=== PATIENT | female | born 1945 | race Caucasian/White ===

== ENCOUNTER 2017-04-22 11:13 | Outpatient (CLI) | payer OTHER ==
[~2017-04-22 11:13] MED LIST: INTESTINEX1 CA1 PO; PEPCID20 MG PO; SEPTRA DS TABLE1 TAB PO
== END 2017-04-22 13:48 | disposition home or self-care (01) ==
LOC: RAD 11:13
DX: N20.0 Calculus of kidney (principal)

== ENCOUNTER 2018-06-30 13:09 | Outpatient (CLI) | payer OTHER | END 2018-06-30 13:25 | disposition home or self-care (01) | LOC: LAB 13:09 | DX: N20.0 Calculus of kidney (principal) ==

== ENCOUNTER 2018-07-28 13:02 | Emergency (ER) | payer OTHER ==
[~2018-07-28] VITALS: Ht 149.9 cm; Wt 52.2 kg
== END 2018-07-28 16:14 | disposition home or self-care (01) ==
LOC: ER 13:02
DX: S90.02XA Contusion of left ankle, initial encounter (principal); W01.198A Fall on same level from slipping, tripping and stumbling with subsequent striking against other object, initial encounter; Y93.89 Activity, other specified; Y92.59 Other trade areas as the place of occurrence of the external cause; Y99.8 Other external cause status

== ENCOUNTER 2018-11-19 08:20 | Day surgery (SDC) | payer OTHER | END 2018-11-19 13:35 | disposition home or self-care (01) | LOC: CIR LITO 08:20 → O/R 08:47 → CIR LITO 08:47 → CIR.AMB 11:45 → CIR LITO 11:45 → O/R 13:35 | DX: N20.0 Calculus of kidney (principal) ==

== ENCOUNTER → 2018-12-04 | Outpatient (CLI) | payer OTHER | END | disposition home or self-care (01) | LOC: RAD 09:56 | DX: N30.00 Acute cystitis without hematuria (principal) ==

== ENCOUNTER 2019-02-05 07:56 | Outpatient (CLI) | payer OTHER | END 2019-02-05 08:12 | disposition home or self-care (01) | LOC: LAB 07:56 | DX: R10.32 Left lower quadrant pain (principal); R19.5 Other fecal abnormalities; K59.09 Other constipation ==

== ENCOUNTER → 2019-02-05 | Outpatient (CLI) | payer OTHER | END | disposition home or self-care (01) | LOC: RAD 08:34 → MAMO-SONO 08:34 | DX: R31.1 Benign essential microscopic hematuria (principal); N20.0 Calculus of kidney ==

== ENCOUNTER → 2019-02-07 10:11 | Outpatient (CLI) | payer OTHER | END | disposition home or self-care (01) | LOC: LAB 10:11 | DX: R10.32 Left lower quadrant pain (principal); K59.09 Other constipation; R19.5 Other fecal abnormalities ==

== ENCOUNTER 2019-08-05 11:19 | Outpatient (CLI) | payer OTHER | END 2019-08-05 11:25 | disposition home or self-care (01) | LOC: RAD 11:19 | DX: N20.0 Calculus of kidney (principal) ==

== ENCOUNTER 2020-07-19 07:41 | Outpatient (CLI) | payer OTHER | END 2020-07-19 07:44 | disposition home or self-care (01) | LOC: SONOGRAMA 07:41 → MAMO-SONO 10:15 | PROVIDERS: ATTEND Urology | DX: N20.0 Calculus of kidney (principal); N31.1 Reflex neuropathic bladder, not elsewhere classified; N28.89 Other specified disorders of kidney and ureter ==

== ENCOUNTER 2021-07-18 09:02 | Outpatient (CLI) | payer OTHER | END 2021-07-18 09:11 | disposition home or self-care (01) | LOC: SONOGRAMA 09:02 | PROVIDERS: ATTEND Urology | DX: N20.0 Calculus of kidney (principal); R31.1 Benign essential microscopic hematuria ==

== ENCOUNTER → 2022-07-24 | Outpatient (CLI) | payer OTHER | END | disposition home or self-care (01) | LOC: RAD 07:22 | PROVIDERS: ATTEND Urology | DX: N20.0 Calculus of kidney (principal); R31.1 Benign essential microscopic hematuria ==

== ENCOUNTER 2022-08-07 13:59 | Outpatient (CLI) | payer OTHER | END 2022-08-07 14:13 | disposition home or self-care (01) | LOC: MRI 13:59 | PROVIDERS: ATTEND Neuromusculoskeletal Medicine & OMM | DX: M51.26 Other intervertebral disc displacement, lumbar region (principal); M51.36 Other intervertebral disc degeneration, lumbar region | CPT/HCPCS: 72148 ==

== ENCOUNTER 2022-08-07 15:31 | Outpatient (CLI) | payer OTHER | END 2022-08-07 15:37 | disposition home or self-care (01) | LOC: LAB 15:31 | PROVIDERS: ATTEND Neuromusculoskeletal Medicine & OMM | DX: R41.3 Other amnesia (principal) ==

== ENCOUNTER 2022-08-21 07:37 | Outpatient (CLI) | payer OTHER | END 2022-08-21 07:49 | disposition home or self-care (01) | LOC: TOM 07:37 | PROVIDERS: ATTEND Urology | DX: N20.1 Calculus of ureter (principal) ==

== ENCOUNTER 2022-08-24 01:25 | Emergency (ER) | payer OTHER ==
[~2022-08-24] VITALS: Ht 144.8 cm; Wt 52.2 kg
== END 2022-08-24 12:24 | disposition home or self-care (01) ==
LOC: ER 01:25
DX: N20.1 Calculus of ureter (principal); Z88.8 Allergy status to other drugs, medicaments and biological substances

== ENCOUNTER 2022-09-15 09:14 | Outpatient (CLI) | payer OTHER | END 2022-09-15 09:25 | disposition home or self-care (01) | LOC: NUCLEAR 09:14 | PROVIDERS: ATTEND Internal Medicine | DX: M81.0 Age-related osteoporosis without current pathological fracture (principal) ==

== ENCOUNTER 2022-09-15 10:32 | Outpatient (CLI) | payer OTHER | END 2022-09-15 10:52 | disposition home or self-care (01) | LOC: RAD 10:32 | PROVIDERS: ATTEND Urology | DX: N60.11 Diffuse cystic mastopathy of right breast (principal); N60.12 Diffuse cystic mastopathy of left breast; Z12.31 Encounter for screening mammogram for malignant neoplasm of breast; I10 Essential (primary) hypertension; E78.2 Mixed hyperlipidemia; N20.1 Calculus of ureter ==

== ENCOUNTER 2022-11-10 07:38 | Outpatient (CLI) | payer OTHER | END 2022-11-10 07:41 | disposition home or self-care (01) | LOC: TOM 07:38 | DX: K57.90 Diverticulosis of intestine, part unspecified, without perforation or abscess without bleeding (principal); N20.0 Calculus of kidney; K44.9 Diaphragmatic hernia without obstruction or gangrene; Z90.710 Acquired absence of both cervix and uterus ==

== ENCOUNTER 2024-02-11 14:13 | Outpatient (CLI) | payer OTHER | END 2024-02-11 14:20 | disposition home or self-care (01) | LOC: RAD 14:13 | PROVIDERS: ATTEND Urology | DX: N20.1 Calculus of ureter (principal); N20.0 Calculus of kidney ==

== ENCOUNTER 2024-02-11 14:53 | Outpatient (CLI) | payer OTHER ==
[2024-02-11 15:31] LABS: URINE APPEARANCE Clear; URINE BILIRRUBIN Negative (NEGATIVE); URINE BLOOD Negative; URINE COLOR Yellow; URINE GLUCOSE Negative (NEGATIVE); URINE KETONE Negative (NEGATIVE); URINE LEUKOCYTE Negative; URINE NITRATE Negative; URINE PROTEIN Negative (NEGATIVE); URINE UROBILINOGEN 0.2 E.U./dl
[2024-02-11 15:42] LABS: URINE RBC 5.6 uL (0.0-20.8); URINE WBC 2.4 uL (0.0-23.2)
[2024-02-11 15:44] LABS: URINE BACTERIA 2.5 uL (0.0-1933); URINE CAST 0.15 uL (0.0-1.40)
== END 2024-02-11 14:54 | disposition home or self-care (01) ==
LOC: LAB 14:53
PROVIDERS: ATTEND Urology
DX: N20.1 Calculus of ureter (principal); N20.0 Calculus of kidney